=== PATIENT | female | born 2005 | race Two or more races ===

== ENCOUNTER 2024-11-27 13:12 | Observation (INO) | payer MEDICAID, SELFPAY ==
[2024-11-27 13:15] VITALS: BP 114/60; PULSE 95; RESP 20; TEMP 37
[2024-11-27 13:24] VITALS: BP 114/60; PULSE 95
[2024-11-27 13:38] VITALS: BMI 36.8
[2024-11-27 14:31] LABS: Collection Type, Urine Clean Catch
[2024-11-27 14:46] LABS: Bacteria,Urine Rare; Bilirubin,Urine Negative (Negative); Blood,Urine Negative (Negative); Clarity,Urine Clear (Clear/Hazy); Color,Urine Yellow (Lt Yel-Yel); Glucose, Urine Negative (Negative); Ketones,Urine Negative (Negative); Leukocyte Esterase,Urine Positive (Negative); Nitrite,Urine Negative (Negative); Protein,Urine Trace (Neg - Trace); RBC,Urine 6 /hpf (0-3); Specific Gravity,Urine 1.027 (1.001-1.035); Squamous Epithelial Cell,Urine 2 /hpf (0-5); Urobilinogen,Urine Negative mg/dL (0.0-1.0); WBC,Urine 8 /hpf (0-5)
[2024-11-27 14:56] LABS: FFN Specimen Descripton Clr Colrless Aqueous; Fetal Fibronectin Negative (Negative)
[2024-11-27 15:40] VITALS: BP 113/76; PULSE 123; RESP 20; TEMP 36.6
[2024-11-27] MEDS: NITROFURANTOIN MACRO 100 MG CAPSULE PO (15:54)
--- NOTE | 2024-11-27 16:21 | PC.NURSE ---
Order entered for culture on UA sent down earlier. Spoke to lab, they will perform on existing sample in lab...
== END 2024-11-27 15:57 | disposition home or self-care (01) ==
PROVIDERS: Admitting Provider Specialist; Visit Provider Specialist
DX: O26.893 Other specified pregnancy related conditions, third trimester (principal); Z3A.32 32 weeks gestation of pregnancy; R25.2 Cramp and spasm
CPT/HCPCS: 59025; 59899; 81001; 82731; 87086; A9270

== ENCOUNTER 2025-01-04 14:37 | Outpatient (CLI) | payer MEDICAID, SELFPAY ==
[2025-01-04] VITALS (11 sets, daily range): BP systolic 122; BP diastolic 63; PULSE 71–92; RESP 18–98; TEMP 37.1; O2SAT 98–99; BMI 40.2; BMI 40.1
--- NOTE | 2025-01-04 14:43 | XR_ITS ---
Examination: Biophysical profile, ultrasound Date and time of exam: January 04, 2025 1449 hours INDICATIONS: Reactive NST in the doctor's office today Technique: Multiple transabdominal sonographic images of the pelvis abdomen obtained. Attention is directed to the breathing movement, gross body movement, amniotic fluid volume and tone. Findings: Amniotic fluid index 8.4 cm Total biophysical profile is 8 of 8. breathing movement is 2. Gross body movement is 2. tone is 2. Qualitative amniotic fluid volume is 2 Impression: Biophysical profile is 8 of 8.
--- NOTE | 2025-01-04 15:48 | PC.NURSE ---
discharge instructions reviewed with pt return to hospital if contractions strong and frequent, vaginal bleeding, rupture of membranes, decreased movement. copy given. pt agrees/understands
== END 2025-01-04 15:44 | disposition home or self-care (01) ==
LOC: S4S1 14:41 → S4SX 14:41
PROVIDERS: Referring Provider Specialist; Visit Provider Specialist
DX: Z34.03 Encounter for supervision of normal first pregnancy, third trimester (principal); Z36.89 Encounter for other specified antenatal screening; Z3A.37 37 weeks gestation of pregnancy
CPT/HCPCS: 59025; 76819

== ENCOUNTER 2025-01-16 08:04 | Inpatient (IN) | payer MEDICAID, SELFPAY ==
[2025-01-16] VITALS (29 sets, daily range): BP systolic 114–141; BP diastolic 63–89; PULSE 58–85; RESP 19; TEMP 36.6–36.8; BMI 39.8
[2025-01-16] MEDS: RINGERS LACTATED 1000 ML 1,000 ML 100 ML IV ×3 (10:15→18:24)
[2025-01-16] MEDS: MISOPROSTOL 50 mCg TABLET 25 MCG VAGINAL (10:52)
[2025-01-16 11:10] LABS: Basophils % (Auto) 0 % (0-2.5); Eosinophils % (Auto) 0 % (0-10); Immature Granulocytes % (Auto) 0 % (0-0); Immature Granulocytes Auto 0.03 Thou/mm3 (0.00-0.00); Lymphocytes % (Auto) 21 % (10-50); Mean Corpuscular Hemoglobin 18.7 pg (25.0-35.0); Mean Corpuscular Volume 64 fL (80-100); Monocytes # (Auto) 0.5 Thou/mm3 (0.0-0.8); Monocytes % (Auto) 5 % (0-12); Neutrophils # (Auto) 6.9 Thou/mm3 (1.8-7.7); Neutrophils % (Auto) 73 % (37-80); Nucleated Red Blood Cell % 0 /100 WBC (0); Platelet Count 234 Thou/mm3 (140-440); RDW Standard Deviation 39.7 fL (36.4-46.3); Red Blood Count 4.81 Miln/mm3 (4.00-5.20); White Blood Count 9.6 Thou/mm3 (4.5-11.0)
[2025-01-16 11:20] LABS: Creatinine,Random Urine 162 mg/dL (30-125); Protein Total, Random Urine 50 mg/dL (1-14)
[2025-01-16 11:48] LABS: Alanine Aminotransferase 9 U/L (10-49); Albumin, Serum 3.6 gm/dL (3.5-5.0); Albumin/Globulin Ratio 1.3 (1.2-2.2); Alkaline Phosphatase 140 U/L (46-116); Anion Gap 8 (7-16); Aspartate Amino Transferase 18 U/L (0-34); BUN/Creatinine Ratio 18 Ratio (12-20); Bilirubin,Total 0.5 mg/dL (0.3-1.2); Blood Urea Nitrogen 9 mg/dL (9-23); Calcium 8.4 mg/dL (8.3-10.6); Calcium (Corrected) 8.7 mg/dL (8.5-10.1); Carbon Dioxide 22.1 mMol/L (20.0-31.0); Chloride 106 mMol/L (98-107); Creatinine (Component) 0.5 mg/dL (0.6-1.3); Estimated Creatinine Clearance 212.2 mL/min (>60); Globulin 2.7 gm/dL (2.3-3.5); Glucose 55 mg/dL (74-106); Osmolality,Calculated 268 (275-295); Potassium 4.2 mMol/L (3.4-5.1); Sodium 136 mMol/L (136-145); Total Protein 6.3 gm/dL (5.7-8.2); eGFR > 60 See Note
[2025-01-16 11:56] LABS: Syphilis Nonreactive (Nonreactive)
[2025-01-16 11:58] LABS: Path Review Blood Smear Sent to Pathologist
--- NOTE | 2025-01-16 13:44 | PD.LDHP ---
Documentation for date of: 01/16/25 OB Labor/Induct. HPI History of Present Illness Chief complaint: scheduled IOL for CHTN, elevated BMI, hx of T2DM : 1 Para: 0 Term pregnancies: 0 pregnancies: 0 Living children: 0 History of Abortions: Spontaneous and Elective: 0 History of Vaginal deliveries: 0 History of sections: No Date of last menstrual period: 03/05/24 CAROLYN: 01/20/25 Gestational Age (weeks): 39 Gestational Age (days): 3 Gestational age based on last menstrual period: 45 History of present illness: Elena is a 19yo with SIUP at 39w3d by early ultrasound presenting for scheduled IOL for CHTN, elevated BMI (current 39.8), hx of T2DM in the past (HgbA1c 5.5 during not on any meds). She feels well, no complaints. Baby moving well. No ctx, lof, vb. History of Present Dating criteria: based on 1st trimester US only Adequate Care: Yes Ultrasounds: abnormal US findings (VSD with mildly dilated right ventricle) Narrative: Complications: -CHTN, taking only ASA 81mg PO QD -Obesity (current BMI 39.8) -Hx of T2DM treated with diet with resolution(?). HgbA1c 5.5 during this and qid fingersticks showed normal glycemia with healthy diet. -Anemia taking iron - VSD with mildly dilated right ventricle -Rubella non-immune Labs Maternal Blood Type: O Pos Labs: Negative: RPR, Hepatitis B, Rubella Titre, HIV, Chlamydia, Gonorrhea and Group Beta Strep Review of Systems Review of Systems Narrative Review of Systems: Review of Systems Systems Reviewed: All systems reviewed, normal except as documented Constitutional Constitutional: Denies body ache(s), Denies chills, Denies fever(s) and Denies headache(s) ENT Ears, Nose, Mouth, and Throat: Denies headache(s) and Denies vertigo Cardiovascular Cardiovascular: Denies chest pain, Denies palpitations, Denies dyspnea and Denies syncope Respiratory Respiratory: Denies cough, Denies dyspnea Gastrointestinal Gastrointestinal: Denies nausea and Denies vomiting Neurologic Neurologic: Denies convulsions, Denies headache(s), Denies other visual disturbances, Denies syncope and Denies vertigo Past Medical History Family History OTHER FAMILY HX: non-contributory Surgical History SURGICAL: Negative Section OTHER SURGICAL HX: denies Social History SOCIAL: No tobacco/illicit drug use/ETOH Past Medical History Comments PMH COMMENT: -CHTN, taking only ASA 81mg PO QD -Obesity (current BMI 39.8) -Hx of T2DM treated with diet with resolution(?). HgbA1c 5.5 during this and qid fingersticks showed normal glycemia with healthy diet. Meds Home Medications and Allergies Home Medications ?Medication ?Instructions ?Recorded ?Confirmed ?Type aspirin 81 mg tablet,delayed 81 mg 11/27/24 History release ferrous sulfate 325 mg (65 mg 325 mg 11/27/24 History iron) tablet nitrofurantoin 100 mg PO BID 11/27/24 11/27/24 History monohydrate/macrocrystals 100 mg capsule (Macrobid) vit no.95-ferrous 1 tab PO 11/27/24 History fumarate 28 mg-folic acid 800 mcg tablet () Allergies Allergy/AdvReac Type Severity Reaction Status Date / Time No Known Allergies Allergy Verified 01/16/25 08:11 OB Exam Physical Exam Vital signs: Temp Pulse Resp BP 97.9 F 66 19 120/70 01/16/25 08:02 01/16/25 13:29 01/16/25 08:02 01/16/25 13:29 Narrative: General: well developed, well nourished, no acute distress, conversant Cardiac: normal heart rate Lungs: breathing without distress Abdomen: soft, gravid, non-tender, no rebound or guarding Extremities: no pain with palpation of calves Detailed Labor and Delivery Exam Dilation (cm): 2 Effacement (%): 50 Cervix position: anterior station: -2 Consistency: soft Presentation: Vertex Membranes: intact monitor accelerations: 15x15 monitor decelerations: None continuous churn buttermaker variability: Moderate (11-25) Contraction frequency (min): no ctx pattern OB Results Labs 01/16/25 09:30 01/16/25 09:30 Labs: Short CBC 01/16/25 Range/Units 09:30 WBC 9.6 (4.5-11.0) Thou/mm3 Hgb 9.0 L (12.0-16.0) g/dL Hct 31.0 L (36.0-46.0) % Plt Count 234 (140-440) Thou/mm3 BMP 01/16/25 09:30 Sodium 136 Potassium 4.2 Chloride 106 Carbon Dioxide 22.1 BUN 9 Creatinine 0.5 L Glucose 55 L Calcium 8.4 Liver Function 01/16/25 Range/Units 09:30 Total Bilirubin 0.5 (0.3-1.2) mg/dL AST 18 (0-34) U/L ALT 9 L (10-49) U/L Alkaline Phosphatase 140 H (46-116) U/L Albumin 3.6 (3.5-5.0) gm/dL OB Assessment & Plan Assessment and Plan (1) Hypertension affecting in third trimester: Status: Acute Assessment and plan: Patient is a 19yo with SIUP at 39&3wk presenting for scheduled IOL for CHTN, Obesity, Hx of T2DM. SCE: /-2. Vitals wnl, benign exam. Reassuring assessment overall. Discussed IOL methods and patient amenable to mercedes cervical balloon and cytotec. Cooks mercedes balloon placed with 60cc NS only in the intra-uterine balloon and 25mcg cytotec placed PV. Well tolerated. care: Good care with Dr. Stanley PMhx/PNC significant for: -CHTN, taking only ASA 81mg PO QD -Obesity (current BMI 39.8) -Hx of T2DM treated with diet with resolution(?). HgbA1c 5.5 during this and qid fingersticks showed normal glycemia with healthy diet. -Anemia taking iron - VSD with mildly dilated right ventricle -Rubella non-immune Plan: -Admit to L&D -Establish IV, routine labs (including baseline PIH labs) -CEFM -Carb consistent diet [id number], then clear liquid diet in labor -Initial fingerstick glucose 50's and post-breakfast 120. No further fingerstick glucose necessary since patient does not have hyperglycemia. -Counseled/consented re: iol and -GBS status: negative -Will await mercedes balloon falling out, re-dose cytotec q4hr as allowed by ctx pattern -Anticipate -Infant will need echo after delivery for cardiac findings on ultrasound. Java Lead Developer to be notified. -Safe to proceed Margaret Petersen MD (2) Obesity affecting in third trimester: Status: Acute (3) Anemia affecting in third trimester: Status: Acute (4) History of borderline diabetes mellitus: Status: Acute (2) Obesity affecting in third trimester Qualifiers: Obesity type affecting : unspecified obesity Qualified Code(s): O99.213 - Obesity complicating , third trimester
[2025-01-16] MEDS: OXYTOCIN in NS 30 units 30 UNIT/500 ML BAG IV (15:45)
[2025-01-17] VITALS (31 sets, daily range): BP systolic 113–159; BP diastolic 60–103; PULSE 57–104; RESP 16–18; TEMP 36.6–37.6; O2SAT 97–99
--- NOTE | 2025-01-17 03:12 | PD.LDPN ---
Documentation for date of: 01/17/25 OB Labor Progress Note Pelvic Exam Dilation (cm): 4 Effacement (%): 80 station: -2 Amniotic membrane status: Ruptured (0310 clear) Contractions Contraction frequency: ctx q3-4min Assessment and Plan Comments: Intrapartum Note Patient is tolerating ctx well, declines epidural, rates 7/10. Vitals wnl, afebrile Cat I FHRT Ctx q3-4min SCE: 4-5/80/-2, AROM performed with clear fluid noted. Well tolerated. Plan: -Discussed pain medication options again with patient, at this time she declines all -Continue to titrate pitocin per protocol -CEFM -Safe to proceed -Anticipate Margaret Petersen MD
[2025-01-17] MEDS: fentaNYL CIT INJ 50 mCg/ML AMP 2ML 100 MCG IV ×3 (04:16→06:26)
[2025-01-17] MEDS: LIDOCAINE HCL 1% 20 ML VIAL INFL (05:29)
[2025-01-17] MEDS: MISOPROSTOL 200 mCg TABLET 800 MCG PR (05:29)
[2025-01-17] MEDS: TRANEXAMIC ACID 1,000 MG IVPB 1,000 MG/100 ML BAG 200 MG IV (05:30)
[2025-01-17] MEDS: OXYTOCIN in NS 20 units 20 UNIT/1,000 ML BAG 125 UNIT IV (05:30)
[2025-01-17] MEDS: BENZO/LANO/ALOE (Dermoplast) 60 GM CAN 1 SPRAY TOP (05:30)
[2025-01-17] MEDS: CARBOPROST TROMETH INJ 250 MCG/ML VIAL IM (05:57)
[2025-01-17] MEDS: LOPERAMIDE 2 MG CAPSULE 4 MG PO (06:01)
--- NOTE | 2025-01-17 06:31 | PD.LDDELS ---
Data ([facility]) Data Hx Section: No : 1 Para: 0 Term: 0 : 0 : 0 Delivery Data (Hunt) Labor Data ROM Date: 01/17/25 ROM Time: 03:08 Rupture Type: AROM Amniotic Fluid: Clear Delivery Data Labor Onset Stage 1 Date: 01/17/25 Labor Onset Stage 1 Time: 04:20 Labor Onset Stage 2 Date: 01/17/25 Labor Onset Stage 2 Time: 04:38 Delivery Date: 01/17/25 Delivery Time: 05:11 Placenta Delivery Date: 01/17/25 Placenta Delivery Time: 05:19 Delivered by: Margaret Petersen Delivery nurse: Sharmila Amanda Other staff at delivery: Nursery Nurse Other staff at delivery: Eunice Martinez Delivery Method Delivery: Vaginal Delivery Type: Spontaneous Anesthesia Type Primary Anesthesia: Local EBL Estimated blood loss (ml): 1,050 Umbilical Cord Nuchal Cord: x1 Additional Procedures Elena is a 19yo [id number] s/p at 39&4wk after undergoing IOL for CHTN, obesity and hx of T2DM, delivering at 0511 on 01/17/2025. On presentation, SCE was 1cm. She progressed with cervical mercedes bulb and vaginal cytotec then IV pitocin and AROM to C/C/+1 at which point she began pushing. She declined epidural. With maternal pushing efforts, 's head delivered OA and restituted SHIKHA. One loose nuchal cord was reduced. Right anterior shoulder delivered followed by posterior shoulder and corpus. Infant had spontaneous cry and was vigorous. Apgars 8/9. Infant placed on maternal abdomen where nose/mouth were suctioned and dried/stimulated. After approximately 1 minute, cord was clamped x2 and cut by FOB. Cord blood collected for typing. With fundal massage and cord traction, placenta delivered spontaneously and intact with 3 vessel centrally inserted cord. A large amount of blood gushed out with the placenta as it delivered. Bimanual massage performed and IV pitocin given per protocol with extremely boggy uterus noted, there was zero tone in the lower uterine segment. I requested for hemabate 0.25mg IM to be given (as well as immodium) and also TXA 1g IV. I did a manual sweep all the way to the fundus and only removed a large amount of clot and a couple tiny pieces of membrane fragments- no significant retained POCs present. Patient had not emptied her bladder in over 4 hours, so I asked for a red alix catheter, which I used to drain the bladder fully. I then performed fundal massage and placed 800mcg cytotec [place]. I donned new gloves and since there was no bleeding at that time, I observed perineum and vagina for lacerations and noted a 2mll and small superficial left labial laceration. These were repaired in routine fashion after anesthetizing with 1% lidocaine, using 3-0 and 4-0 vicryl, respectively, with total hemostasis and reapproximation noted. However, during the repair, she continued to have trickles of bleeding intermittently. Another sweep was performed within the uterus, which revealed that the uterus was not clamping down and just re-collecting clot within it. I removed the clot and called for a Bakri balloon. I attempted to place the Bakri, filling with 150cc NS, but because the cervix was so dilated, the Bakri pushed out of the uterus and could not be kept within it. At that time I called for a vaginal packing and I placed the packing within the uterine cavity. Patient received a second dose of IV fentanyl during this time for pain control. I observed for a while and there was no immediate saturation of the packing. It will be left in place for 6-12 hours (the end of the packing with the blue tag is outside of the vagina for easy removal later). Will give IV Unasyn while packing is in place CBC and coags were ordered to be performed now and will repeat CBC after 6 hours to observe trend. Blood loss was measured in a graduated cylinder and total QBL is 1050ml. All counts correct x2. Mom and infant were doing well when I left the room. Complications Complications: PPH related to uterine atony Data (Hunt) Data Infant Gender: Female Weight Grams: 3555 1 Minute Total: 8 5 Minute Total: 9
[2025-01-17] MEDS: AMPICILLIN/SULBAC INJ 3 GM in SODIUM CHLORIDE 0.9% (POP) 100 ML IV ×3 (06:36→18:25)
[2025-01-17 07:40] LABS: Basophils % (Auto) 0 % (0-2.5); Eosinophils % (Auto) 0 % (0-10); Hematocrit 27.1 % (36.0-46.0); Immature Granulocytes % (Auto) 1 % (0-0); Immature Granulocytes Auto 0.12 Thou/mm3 (0.00-0.00); Lymphocytes # (Auto) 1.2 Thou/mm3 (1.0-4.8); Lymphocytes % (Auto) 7 % (10-50); Mean Corpuscular HGB Conc 29.5 g/dl (31.0-37.0); Mean Corpuscular Hemoglobin 18.7 pg (25.0-35.0); Mean Corpuscular Volume 63 fL (80-100); Monocytes # (Auto) 0.6 Thou/mm3 (0.0-0.8); Monocytes % (Auto) 4 % (0-12); Neutrophils # (Auto) 15.7 Thou/mm3 (1.8-7.7); Neutrophils % (Auto) 89 % (37-80); Nucleated Red Blood Cell % 0 /100 WBC (0); Platelet Count 228 Thou/mm3 (140-440); Red Blood Count 4.28 Miln/mm3 (4.00-5.20); White Blood Count 17.6 Thou/mm3 (4.5-11.0)
[2025-01-17 07:53] LABS: Fibrinogen 432 mg/dL (175-375); Partial Thromboplastin Time 27.1 Seconds (22.0-36.0)
[2025-01-17] MEDS: DOCUSATE SOD 100 MG CAPSULE PO ×2 (09:00→21:05)
--- NOTE | 2025-01-17 12:55 | PC.NURSE ---
Dr. Petersen at nurses station, RN reported to MD low grade temperature of 99.7, per MD she will come to bedside to remove vaginal packing and mercedes catheter.
--- NOTE | 2025-01-17 13:00 | PC.NURSE ---
Dr. Petersen at bedside poc explained to pt, vaginal packing removed, mercedes catheter removed with urine output of 1000ml. RN started cooling measures for elevated temperature, MD answered all of pts questions and concerns. MD order received to swab pt for the flu, and to continue atb for 24hrs after delivery. Pt allowed to get up and ambulate in room 1 hr after removal of vaginal packing, RN to monitor fundus and bleeding during that hour.
[2025-01-17 13:04] LABS: Basophils % (Auto) 0 % (0-2.5); Eosinophils % (Auto) 0 % (0-10); Hematocrit 23.8 % (36.0-46.0); Immature Granulocytes % (Auto) 0 % (0-0); Immature Granulocytes Auto 0.05 Thou/mm3 (0.00-0.00); Lymphocytes # (Auto) 1.7 Thou/mm3 (1.0-4.8); Lymphocytes % (Auto) 12 % (10-50); Mean Corpuscular HGB Conc 29.4 g/dl (31.0-37.0); Mean Corpuscular Hemoglobin 18.7 pg (25.0-35.0); Mean Corpuscular Volume 64 fL (80-100); Monocytes # (Auto) 0.8 Thou/mm3 (0.0-0.8); Monocytes % (Auto) 6 % (0-12); Neutrophils # (Auto) 11.8 Thou/mm3 (1.8-7.7); Neutrophils % (Auto) 82 % (37-80); Nucleated Red Blood Cell % 0 /100 WBC (0); Platelet Count 212 Thou/mm3 (140-440); RDW Standard Deviation 38.9 fL (36.4-46.3); Red Blood Count 3.75 Miln/mm3 (4.00-5.20); White Blood Count 14.4 Thou/mm3 (4.5-11.0)
--- NOTE | 2025-01-17 13:40 | PC.NURSE ---
Dr. Petersen at nurses station, post H&H reported to MD, per MD RN to wait until pt gets up and ambulates to see how she feels, if dizzy MD to be notified. Order received for X-RAY if flu swab is negative.
[2025-01-17 14:17] LABS: Influenza A Ag Negative; Influenza B Ag Negative
--- NOTE | 2025-01-17 14:25 | XR_ITS ---
Examination: PA lateral chest 2 views Technique: Upright PA lateral chest 2 views Exam date and time: January 17, 2025 1552 hrs. Comparison August 16, 2009 Indications: Coughing post today with fever Findings: Normal heart size. Lungs are clear. The osseous structures are intact. Impression: No active disease.
--- NOTE | 2025-01-17 14:27 | PD.LDPN ---
Documentation for date of: 01/17/25 OB Labor Progress Note Pelvic Exam Amniotic membrane status: Ruptured (0310 clear) Assessment and Plan Comments: Note for removal of uterine packing. Elena is doing well. Recently felt warm and RN took temp- 99.7F, she had a few blankets on and baby bundled up against her. Blankets removed and she was given ice water. RN notes bleeding with uterine packing in place has been minimal, as expected . Fundus has remained firm. Patient endorses she has had a mild cough for about a week. Also has congestion. She routinely has seasonal allergies, but doesn't usually have cough with it. Hasn't ambulated yet since she has vaginal packing and mercedes in place. Normal pulse and bp's Hgb trend 9 -> 8 --> 7 (no blood products ever given). Uterine packing removed without issue. Observed for a few minutes after with no active bleeding noted. Fundal massage performed and no bleeding occurred. Fundus firm at u-2cm. Will obtain flu swab, if negative will perform CXR 2 view Given low grade temp, will continue Unasyn for 4 total doses (just now receiving 2nd dose). Rx iron. Re-check Hgb this evening. If < 7, will recommend transfusion of 1u pRBCs. (Or if patient has sx of anemia once she is up and walking this afternoon). Margaret Petersen MD
--- NOTE | 2025-01-17 15:00 | PC.NURSE ---
Dr. Petersen at bedside, poc explained to pt, MD explained to pt the purpose of iron infusion, all questions and concerns addressed.
[2025-01-17] MEDS: FERRIC SOD GLUC INJ 125 MG in SODIUM CHLORIDE 0.9% 100 ML 110 MG IV (17:01)
[2025-01-17 19:12] LABS: Basophils % (Auto) 0 % (0-2.5); Eosinophils % (Auto) 0 % (0-10); Hematocrit 24.2 % (36.0-46.0); Immature Granulocytes % (Auto) 0 % (0-0); Immature Granulocytes Auto 0.05 Thou/mm3 (0.00-0.00); Lymphocytes # (Auto) 2.8 Thou/mm3 (1.0-4.8); Lymphocytes % (Auto) 20 % (10-50); Mean Corpuscular HGB Conc 29.3 g/dl (31.0-37.0); Mean Corpuscular Hemoglobin 18.7 pg (25.0-35.0); Mean Corpuscular Volume 64 fL (80-100); Monocytes % (Auto) 8 % (0-12); Neutrophils # (Auto) 9.9 Thou/mm3 (1.8-7.7); Neutrophils % (Auto) 72 % (37-80); Nucleated Red Blood Cell % 0 /100 WBC (0); Platelet Count 228 Thou/mm3 (140-440); RDW Standard Deviation 39.1 fL (36.4-46.3); White Blood Count 13.8 Thou/mm3 (4.5-11.0)
[2025-01-17 19:17] LABS: Hemoglobin 7.1 g/dL (12.0-16.0)
[2025-01-17] MEDS: RINGERS LACTATED 1000 ML 1,000 ML 100 ML IV (20:38)
[2025-01-17] MEDS: FERROUS SULF 325 MG TABLET PO (21:05)
[2025-01-18] VITALS (10 sets, daily range): BP systolic 90–114; BP diastolic 54–75; PULSE 60–80; RESP 17–20; TEMP 36.4–36.9; O2SAT 96–100
[2025-01-18] MEDS: AMPICILLIN/SULBAC INJ 3 GM in SODIUM CHLORIDE 0.9% (POP) 100 ML IV ×2 (00:06→06:12)
[2025-01-18] MEDS: IBUPROFEN TAB 400 MG TABLET 800 MG PO (06:18)
[2025-01-18] MEDS: FERROUS SULF 325 MG TABLET PO ×2 (08:08→20:36)
[2025-01-18] MEDS: DOCUSATE SOD 100 MG CAPSULE PO ×2 (08:08→20:35)
[2025-01-18 09:16] LABS: Hemoglobin 6.6 g/dL (12.0-16.0)
--- NOTE | 2025-01-18 11:02 | PD.LDPPPRG ---
Subjective Subjective Interval history: Patient doing well overall. Minimal discomfort. She is ambulating no lightheadedness/dizziness. Voiding spontaneously, no issues. Tolerating regular diet without nausea/vomiting. Lochia tapering as expected. No fevers/chills, no CP/SOB. Exam Vital Signs Temp Pulse Resp BP Pulse Ox O2 Del Method 97.7 F 73 20 107/70 98 Room Air 01/18/25 07:30 01/18/25 07:30 01/18/25 07:30 01/18/25 07:30 01/18/25 07:30 01/18/25 07:30 Narrative Exam General: well developed, well nourished, no acute distress, conversant Cardiac: normal heart rate Lungs: breathing without distress Abdomen: soft, post-gravid, non-tender, no rebound or guarding, Fundus firm at u-3cm. Extremities: no pain with palpation of calves, 1+ edema of BLE Objective Labs 01/18/25 07:30 01/16/25 09:30 Labs: Laboratory Results - last 24 hr 01/17/25 01/17/25 01/17/25 12:48 13:15 18:51 WBC 14.4 H 13.8 H RBC 3.75 L 3.80 L Hgb 7.0 L 7.1 L Hct 23.8 L 24.2 L MCV 64 L 64 L MCH 18.7 L 18.7 L MCHC 29.4 L 29.3 L RDW Std Deviation 38.9 39.1 Plt Count 212 228 Neut % (Auto) 82 H 72 Lymph % (Auto) 12 20 Ross % (Auto) 6 8 Eos % (Auto) 0 0 Baso % (Auto) 0 0 Neut # (Auto) 11.8 H 9.9 H Lymph # (Auto) 1.7 2.8 Ross # (Auto) 0.8 1.0 H Eos # (Auto) 0.0 0.0 Baso # (Auto) 0.0 0.0 Immature Gran # (Auto) 0.05 H 0.05 H Absolute Nucleated RBC 0.00 0.00 Immature Gran % 0 0 Nucleated RBC % 0 0 Influenza A (Rapid) Negative Influenza B (Rapid) Negative Crossmatch 01/18/25 01/18/25 07:30 10:09 WBC RBC Hgb 6.6 L* Hct 23.0 L MCV MCH MCHC RDW Std Deviation Plt Count Neut % (Auto) Lymph % (Auto) Ross % (Auto) Eos % (Auto) Baso % (Auto) Neut # (Auto) Lymph # (Auto) Ross # (Auto) Eos # (Auto) Baso # (Auto) Immature Gran # (Auto) Absolute Nucleated RBC Immature Gran % Nucleated RBC % Influenza A (Rapid) Influenza B (Rapid) Crossmatch See Detail Assessment & Plan Problem List (1) hemorrhage, third stage, delivered: Status: Acute Assessment and plan: Elena is a 19yo [id number] s/p at 39&4wk after undergoing IOL for CHTN, obesity and hx of T2DM, delivering at 0511 on 01/17/2025, doing well on PPD 1. Delivery was complicated by PPH of >1000ml treated with multiple uterotonics and ultimately uterine packing. Packing was removed yesterday afternoon and patient has had appropriate lochia since then. She has been receiving Unasyn. Initial Hgb was 7.0 then 7.1 last night, patient was counseled on iron infusion which she received on 01/17. She notes feeling much better today, but repeat Hgb this morning is 6.6. She was counseled on indication for transfusion of 1u pRBCs and she is amenable to receiving it. Vitals wnl, benign exam. Hemodynamically stable with no evidence of infection. She has had a week of mild cough and congestion. Flu swab 01/17 negative and CXR was wnl. complicated by: -CHTN, taking only ASA 81mg PO QD -Obesity (current BMI 39.8) -Hx of T2DM treated with diet with resolution(?). HgbA1c 5.5 during this and qid fingersticks showed normal glycemia with healthy diet. -Anemia taking iron - VSD with mildly dilated right ventricle -Rubella non-immune Plan: -Continue routine care -Transfuse 1u pRBCs. Consent form discussed and signed. Pre-treat with IV benadryl and PO tylenol. Will do post-transfusion H/H 4 hours after completion of transfusion. If appropriate and patient feeling well, may discharge home this evening. She prefers to go home today if possible. -Discontinue Unasyn -Regular diet -Encourage ambulation (2) Transfusion of blood during current hospitalisation: Status: Acute (3) Hypertension affecting in third trimester: Status: Acute (4) Obesity affecting in third trimester: Status: Acute (5) Anemia affecting in third trimester: Status: Acute (6) History of borderline diabetes mellitus: Status: Acute Time Spent With Patient Time: Total time spent is greater than 50% in coordination of care (as documented) at patient's floor/unit and/or counseling patient:
[2025-01-18] MEDS: DiphenhydrAMINE INJ 50 MG/ML VIAL 25 MG IV (12:17)
[2025-01-18] MEDS: ACETAMINOPHEN 325 MG TABLET 650 MG PO (12:17)
[2025-01-18 19:27] LABS: Basophils # (Auto) 0.1 Thou/mm3 (0.0-0.2); Basophils % (Auto) 1 % (0-2.5); Eosinophils # (Auto) 0.1 Thou/mm3 (0.0-0.5); Eosinophils % (Auto) 1 % (0-10); Hematocrit 28.1 % (36.0-46.0); Immature Granulocytes % (Auto) 1 % (0-0); Immature Granulocytes Auto 0.05 Thou/mm3 (0.00-0.00); Lymphocytes # (Auto) 2.7 Thou/mm3 (1.0-4.8); Lymphocytes % (Auto) 26 % (10-50); Mean Corpuscular HGB Conc 29.9 g/dl (31.0-37.0); Mean Corpuscular Hemoglobin 20.1 pg (25.0-35.0); Mean Corpuscular Volume 67 fL (80-100); Monocytes # (Auto) 0.7 Thou/mm3 (0.0-0.8); Monocytes % (Auto) 7 % (0-12); Neutrophils % (Auto) 66 % (37-80); Nucleated Red Blood Cell % 0 /100 WBC (0); Platelet Count 249 Thou/mm3 (140-440); RDW Standard Deviation 45.7 fL (36.4-46.3); Red Blood Count 4.17 Miln/mm3 (4.00-5.20); White Blood Count 10.5 Thou/mm3 (4.5-11.0)
[2025-01-18 19:29] LABS: Hemoglobin 8.4 g/dL (12.0-16.0)
--- NOTE | 2025-01-18 19:54 | ESDS_ITS ---
DS: Providers Provider Date of admission: 01/16/25 08:04 Primary care physician: GISELLE Campa Admitting Provider: Margaret Petersen MD Attending Provider on Admission: Margaret Petersen MD Consults: 01/17/25 06:26 Referral Routine Comment: Attending Provider on DC: Margaret Petersen MD Discharging Provider: Margaret Petersen MD DS: Diagnosis Discharge Diagnosis (1) hemorrhage, third stage, delivered: Status: Acute (2) Transfusion of blood during current hospitalisation: Status: Acute (3) Obesity affecting in third trimester: Status: Acute (4) Anemia affecting in third trimester: Status: Acute (5) History of borderline diabetes mellitus: Status: Acute (6) Hypertension affecting in third trimester: Status: Acute Problem List Completed Was Problem List Reviewed/Reconciled?: Yes Summary/Hosp Course Brief History: Elena is a 19yo [id number] s/p at 39&4wk after undergoing IOL for CHTN, obesity and hx of T2DM, delivering at 0511 on 01/17/2025, doing well on PPD 1. Delivery was complicated by PPH of >1000ml treated with multiple uterotonics and ultimately uterine packing. Packing was removed yesterday afternoon and patient has had appropriate lochia since then. She received Unasyn >24hr. Initial Hgb was 7.0 then 7.1 last night, patient was counseled on iron infusion which she received on 01/17. She noted feeling much better today, but repeat Hgb this morning was 6.6. She received 1u of pRBCs and 4hr post-transfusion Hgb is 8.4. Vitals wnl, benign exam. Hemodynamically stable with no evidence of infection. She has had a week of mild cough and congestion. Flu swab 01/17 negative and CXR was wnl. She notes feeling really well and desires discharge home at this time. complicated by: -CHTN, taking only ASA 81mg PO QD -Obesity (current BMI 39.8) -Hx of T2DM treated with diet with resolution(?). HgbA1c 5.5 during this and qid fingersticks showed normal glycemia with healthy diet. -Anemia taking iron - VSD with mildly dilated right ventricle -Rubella non-immune Status at Discharge Functional status at discharge: independent ambulation Overall status at discharge: patient is back to baseline Time Spent with Patient Time attestation: Total time spent providing and/or coordinating discharge services: Exam Vital Signs Temp Pulse Resp BP Pulse Ox O2 Del Method 97.6 F 67 20 108/68 99 Room Air 01/18/25 16:09 01/18/25 16:09 01/18/25 16:09 01/18/25 16:09 01/18/25 16:09 01/18/25 16:09 Narrative Exam General: well developed, well nourished, no acute distress, conversant Cardiac: normal heart rate Lungs: breathing without distress Abdomen: soft, post-gravid, non-tender, no rebound or guarding, Fundus firm at u-3cm. Extremities: no pain with palpation of calves, trace edema of BLE Discharge Plan Plan Patient Disposition: HOME (Self Care) Patient condition on transfer: Stable Prescriptions/Referrals Prescriptions/Med Rec: New docusate sodium 100 mg Capsule 100 mg PO BID 30 Days Qty: 60 0RF ferrous sulfate 325 mg (65 mg iron) Tablet,Delayed Release (Dr/Ec) 325 mg PO BID 60 Days Qty: 120 0RF ibuprofen 800 mg tablet 800 mg PO Q8H PRN (Reason: See Comments) 10 Days Qty: 20 0RF Continued PNV cmb#95-ferrous fumarate-FA [] 28 mg iron- 800 mcg tablet 1 tab PO Patient Comments: TOME 1 TABLETA POR V A ORAL TODOS LOS D Discontinued aspirin 81 mg tablet,delayed release (DR/EC) 81 mg Patient Comments: SERGEE DOS TABLETAS POR V A ORAL TODOS LOS D ferrous sulfate 325 mg (65 mg iron) tablet 325 mg Patient Comments: TOME 1 TABLETA POR V A ORAL TODOS LOS D nitrofurantoin monohyd/m-cryst [Macrobid] 100 mg capsule 100 mg PO BID Rx Instructions: must administer with a meal/food Referrals: Rachael Johnson FNP [Primary Care Provider] - Patient/Caregiver Discharge Instructions Discharge Activity: activity as tolerated and other Other Discharge Activity Instructions:: vaginal rest and no heavy lifting more than 10 pounds for 6 weeks Other Discharge Diet Instructions: regular diet Education Materials: Anemia, After a Vaginal , Hemorrhage Print Language: Ukrainian Activity Restrictions/Additional Instructions: follow up with Dr. Stanley in 2 weeks for visit, call clinic to schedule Stand Alone Forms: Kaylen Award Info., Patient Portal Info Letter Discharge Order Discharge Orders: Discharge (Routine); Ordered 01/18/25 Ordered By: Margaret Petersen Planned Discharge Date 01/18/25 (3) Obesity affecting in third trimester Qualifiers: Obesity type affecting : unspecified obesity Qualified Code(s): O99.213 - Obesity complicating , third trimester
[2025-01-18] MEDS: DIPHTH,PERTUSS(ACELL),TET VAC 0.5 ML SYR- ADULT IMi (20:36)
[2025-01-18] MEDS: MEASLES, MUMPS & RUBELLA VACC 0.5 ML VIAL SCi (20:37)
--- NOTE | 2025-01-18 20:53 | PC.NURSE ---
Alejandro Petersen at bedside for evaluation of pt. CBC discussed pt v/u and is requesting to be d/c home. OB VORB for d/c home pt to follow up w/ Dr. Stanley in 2 weeks, continue medication regimen at home.
== END 2025-01-18 21:45 | disposition home or self-care (01) | DRG 560 ==
LOC: S4SX 01-17 08:40 → S4NX 01-17 08:55
PROVIDERS: Admitting Provider Obstetrics & Gynecology; PCP Registered Nurse Community Health; Visit Provider Obstetrics & Gynecology
DX: O10.92 Unspecified pre-existing hypertension complicating childbirth (principal); Z37.0 Single live birth; Z3A.39 39 weeks gestation of pregnancy; O69.81X0 Labor and delivery complicated by cord around neck, without compression, not applicable or unspecified; O99.214 Obesity complicating childbirth; O24.12 Pre-existing type 2 diabetes mellitus, in childbirth; O62.2 Other uterine inertia; O35.BXX0 Maternal care for other (suspected) fetal abnormality and damage, fetal cardiac anomalies, not applicable or unspecified; O72.0 Third-stage hemorrhage; O99.02 Anemia complicating childbirth; Q21.0 Ventricular septal defect; O99.892 Other specified diseases and conditions complicating childbirth; N85.8 Other specified noninflammatory disorders of uterus
CPT/HCPCS: 36415; 59409; 71046; 80053; 80307; 82570; 84156; 85014; 85018; 85025; 85384; 85730; 86780; 86850; 86900; 86901; 86923; 87502; 90707; 90715; J0295; J1200; J2590; J2916; J3010; J3490; J7050; J7120; P9016; S0191; A9270

== ENCOUNTER 2025-01-31 20:30 | Emergency (ER) | payer MEDICAID, SELFPAY ==
[2025-01-31 21:08] VITALS: BP 123/81; PULSE 102; RESP 20; TEMP 37.3; O2SAT 96
--- NOTE | 2025-01-31 21:55 | PD.EDFMALE ---
ED Female Urogenital RME/HPI General Chief complaint: Urogenital-Female Stated complaint: POSSIBLE TEAR TO VAGINAL DELIVERY SITE Time Seen by Provider: 01/31/25 21:36 Arrival date/time: 01/31/25 20:30 19F with history of vaginal delivery 2 weeks ago here with possible tear in vaginal delivery site because patient states it hurts when she tries to have a BM. Patient denies dysuria, vaginal bleeding, and dysuria. Limitations: no limitations Related Data Home Medications ?Medication ?Instructions ?Recorded ?Confirmed vit no.95-ferrous 1 tab PO 11/27/24 fumarate 28 mg-folic acid 800 mcg tablet () Previous Rx's ?Medication ?Instructions ?Recorded docusate sodium 100 mg capsule 100 mg PO BID 30 days #60 caps 01/18/25 ferrous sulfate 325 mg (65 mg 325 mg PO BID 60 days #120 tabs 01/18/25 iron) tablet,delayed release Allergies Allergy/AdvReac Type Severity Reaction Status Date / Time No Known Allergies Allergy Verified 01/31/25 20:31 Review of Systems Review of Systems Systems Reviewed: All systems reviewed, normal except as documented Constitutional Constitutional: Reports system reviewed and no additional complaints, except as documented, Denies fever(s) and Denies headache(s) ENT Ears, Nose, Mouth, and Throat: Denies disequilibrium and Denies headache(s) Cardiovascular Cardiovascular: Reports system reviewed and no additional complaints, except as documented, Denies chest pain and Denies dyspnea Respiratory Respiratory: Reports system reviewed and no additional complaints, except as documented, Denies cough and Denies dyspnea Gastrointestinal Gastrointestinal: Reports system reviewed and no additional complaints, except as documented, Denies abdominal pain, Denies nausea and Denies vomiting Neurologic Neurologic: Reports system reviewed and no additional complaints, except as documented, Denies confusion, Denies disequilibrium and Denies headache(s) Psychiatric Psychiatric: Denies confusion Past Medical History Past Medical History NEUROLOGIC: Negative Neurological Disorders CARDIAC: Positive Cardiac Disorders and Heart Murmur; Negative Congestive Heart Failure RESPIRATORY: Negative Chronic Obstructive Pulmonary Disease (COPD) GASTROINTESTINAL: Negative Gastrointestinal Disorders GENITOURINARY: Negative Genitourinary Disorders or Renal Disease REPRODUCTIVE: Negative Pelvic Inflammatory Disease MUSCULOSKELETAL: Negative Musculoskeletal Disorders ENDOCRINE: Positive Endocrine Disorders and Diabetes Mellitus Type 2; Negative Diabetes Mellitus Type 1 HEMATOLOGIC: Positive Blood Disorders and Anemia OTHER HISTORY: Negative Autoimmune Disease, Anesthesia Reactions or Cancer Family History FAMILY HISTORY: Positive Family Cardiac Disorders (murmur); Negative Family Psychiatric Problems, Family Respiratory Disorders, Family Gastrointestinal Problems, Family Cancer, Family Surgery or Family Anesthesia Reaction Surgical History SURGICAL: Negative Section Social History SMOKING STATUS: Never smoker ED Exam General Limitations: Present no limitations General appearance: Present alert and in no apparent distress Head Head exam: Present atraumatic Eye Eye exam: Present normal appearance, PERRL and EOMI ENT ENT exam: Present normal exam, normal oropharynx and mucous membranes moist Neck Neck exam: Present normal inspection, full ROM and trachea midline Chest Chest inspection: Present normal inspection and symmetric chest wall rise Respiratory Respiratory exam: Present normal lung sounds bilaterally Cardiovascular Cardiovascular exam: Present regular rate, normal rhythm and normal heart sounds Abdominal Exam Abdominal exam: Present soft and normal bowel sounds Extremities Exam Extremities exam: Present normal inspection and full ROM Back Exam Back exam: Present normal inspection and full ROM Neurological Exam Neurological exam: Present alert, oriented X3 and CN II-XII intact Psychiatric Psychiatric exam: Present normal affect and normal mood Skin Skin exam: Present warm, dry, intact and normal color Course Quality Measures none Vital Signs Vital signs: Vital Signs Temperature 99.1 F 01/31/25 21:08 Pulse Rate 102 H 01/31/25 21:08 Respiratory Rate 20 01/31/25 21:08 Blood Pressure 123/81 01/31/25 21:08 Pulse Oximetry (%) 96 01/31/25 21:08 Oxygen Delivery Method Room Air 01/31/25 21:08 O2 at 96% on RA and WNLs Urogenital - Female MDM Narrative MDM Narrative:: 19F with history of vaginal delivery 2 weeks ago here with possible tear in vaginal delivery site because patient states it hurts when she tries to have a BM. Patient denies dysuria, vaginal bleeding, and dysuria. Physical exam with ex assistant/program director reveals no perineal/vaginal tear or open wound. Patient is afebrile, calm, and alert. Counseled to call OB to see if they can see her sooner than next month. Patient data External records reviewed:: [facility] previous records Clinical information provided by:: patient Social determinants that could affect healthcare access:: none Patient has the following chronic illnesses:: none How is presenting disease/condition affected by chronic disease/condition?: no chronic disease Evaluation data The following diagnostics were reviewed and interpreted by me:: other (specify) (none) Lab and/or radiology exams considered but not ordered:: not ordered Interpretation Summary: n/a Medications / Prescriptions Medications or Prescriptions considered but not ordered:: not ordered Medication administrations:: n/a Consultations Consultation(s) initiated? (list below): No Diagnosis Urogenital Female Differential Diagnosis: urinary tract infection, bacterial vaginosis, trichomoniasis, cervicitis, ovarian cyst, vaginitis, ruptured ovarian cyst, cyst of Bartholin's gland, cystitis, dysmenorrhea and other (postop exam) Most likely diagnosis given after review of the tests above:: postop exam Admission Indicated Admission indicated?: not indicated Admission Request Was there a request for admission?: No Disposition Plan Disposition Plan: Discharge Discharge Attestation Discharge Attestation: The patient and all family members were given an opportunity to ask questions and understood the discharge instructions. Discharge instructions specifically effects, indications for sooner follow up or return to the emergency department, and the expected course of current diagnosis. Patient condition: Stable Discharge Plan Plan Patient Disposition: HOME (Self Care) Disposition Comment: Stable Prescriptions/Referrals Prescriptions/Med Rec: No Action docusate sodium 100 mg Capsule 100 mg PO BID 30 Days Qty: 60 0RF ferrous sulfate 325 mg (65 mg iron) Tablet,Delayed Release (Dr/Ec) 325 mg PO BID 60 Days Qty: 120 0RF PNV cmb#95-ferrous fumarate-FA [] 28 mg iron- 800 mcg tablet 1 tab PO Patient Comments: TOME 1 TABLETA POR V A ORAL TODOS LOS D Problem List Clinical Impression: Postoperative examination Patient/Caregiver Discharge Instructions Education Materials: ED Wound Check (No Infection) Additional Instructions: Please follow-up with PCP within 24-48 hours and return immediately if symptoms worsen. Call OB tomorrow to see if they can see you this week. Print Language: Qatari Stand Alone Forms: Patient Portal Info Letter PA/BUILDING SERVICES COORDINATOR Supervising Physician CHRISTINA/GISELLE Supervising Physician: Dr. Lee
== END 2025-01-31 21:53 | disposition home or self-care (01) ==
LOC: SERX 21:56
PROVIDERS: Emergency Provider Emergency Medicine
DX: O90.89 Other complications of the puerperium, not elsewhere classified (principal)
CPT/HCPCS: 99282